=== PATIENT | male | born 1965 | race Caucasian/White ===

== ENCOUNTER 2018-07-22 15:50 | Outpatient (RCR) | payer BC ==
[2018-05-27] MEDS: VEDOLIZUMAB 300 MG/NS 250 ML IVPB IV SCH ×2 (17:03)
[2018-05-27 17:13] VITALS: BP 136/87
[~2018-07-22] VITALS: Ht 172.7 cm; Wt 95.3 kg
[~2018-07-22 15:50] MED LIST: PRED2.5T PO
[2018-07-22] MEDS: VEDOLIZUMAB 300 MG/NS 250 ML IVPB IV SCH ×2 (16:30)
[2018-07-22 17:05] VITALS: BP 145/87
== END 2018-08-25 | disposition home or self-care (01) ==
LOC: SDC 15:50
PROVIDERS: ATTEND Pediatrics
DX: K51.319 Ulcerative (chronic) rectosigmoiditis with unspecified complications (principal)
CPT/HCPCS: 96365; J3380

== ENCOUNTER 2018-11-11 16:17 | Outpatient (RCR) | payer BC ==
[2018-09-16] MEDS: VEDOLIZUMAB 300 MG/NS 250 ML IVPB IV SCH ×2 (16:45)
[2018-09-16 17:20] VITALS: BP 134/88
[~2018-11-11] VITALS: Ht 172.7 cm; Wt 95.3 kg
[2018-11-11] MEDS: VEDOLIZUMAB 300 MG/NS 250 ML IVPB IV SCH ×2 (16:45)
[2018-11-11 17:35] VITALS: BP 133/82
== END 2019-02-09 | disposition home or self-care (01) ==
LOC: SDC 16:17
PROVIDERS: ATTEND Pediatrics
DX: K51.319 Ulcerative (chronic) rectosigmoiditis with unspecified complications (principal)
CPT/HCPCS: 96365; J3380

== ENCOUNTER 2019-01-06 16:01 | Outpatient (RCR) | payer BC ==
[~2019-01-06] VITALS: Ht 172.7 cm; Wt 95.3 kg
[2019-01-06 16:15] VITALS: BP 139/88
[2019-01-06] MEDS ORDERED: VEDOLIZUMAB 300 MG/NS 250 ML IVPB IV SCH ×2 (16:15)
== END 2019-04-06 | disposition home or self-care (01) ==
LOC: SDC 16:01
PROVIDERS: ATTEND Pediatrics
DX: K51.319 Ulcerative (chronic) rectosigmoiditis with unspecified complications (principal)
CPT/HCPCS: 96365; J3380

== ENCOUNTER 2019-03-03 12:48 | Outpatient (RCR) | payer BC ==
[~2019-03-03] VITALS: Ht 172.7 cm; Wt 95.3 kg
[2019-03-03] MEDS ORDERED: VEDOLIZUMAB 300 MG/NS 250 ML IVPB IV SCH ×2 (13:15)
[2019-03-03 14:00] VITALS: BP 129/82
== END 2019-03-03 14:00 | disposition home or self-care (01) ==
LOC: SDC 12:48
PROVIDERS: ATTEND Pediatrics
DX: K51.319 Ulcerative (chronic) rectosigmoiditis with unspecified complications (principal)
CPT/HCPCS: 96365; J3380

== ENCOUNTER 2019-04-28 15:40 | Outpatient (RCR) | payer BC ==
[~2019-04-28] VITALS: Wt 95.3 kg
[2019-04-28] MEDS ORDERED: VEDOLIZUMAB 300 MG/NS 250 ML IVPB IV SCH ×2 (15:51)
[2019-04-28 16:46] VITALS: BP 127/84
== END 2019-04-28 16:46 | disposition home or self-care (01) ==
LOC: SDC 15:40
PROVIDERS: ATTEND Pediatrics
DX: K51.319 Ulcerative (chronic) rectosigmoiditis with unspecified complications (principal); R73.01 Impaired fasting glucose
CPT/HCPCS: J3380

== ENCOUNTER 2019-09-22 23:22 | Emergency (ER) | payer BC ==
[~2019-09-22] VITALS: Ht 172 cm; Wt 91.0 kg
[2019-09-22 23:30] VITALS: BP 142/91
--- OUTSIDE RECORDS SUMMARY | 2019-09-22 23:30 | XMS REPORT | Continuity of Care Document ---
Demographics Preferred Language Unknown Marital Status Unknown [employer] Affiliation Unknown Race Unknown Ethnic Group Unknown Author Organization Unknown Address Unknown Phone Unavailable Allergies Active Description Code Type Severity Reaction Onset Reported/Identified Relationship to Patient Clinical Status Yes No Known Drug Allergies [id number] Drug Allergy Unknown N/A 05/27/2018 Medications There is no data. Problems Date Dx Coded Attending Type Code Diagnosis Diagnosed By 02/13/1399 DAVID ROBLES, CHIRAG Guerra Ot K51.319 ULCERATIVE (CHRONIC) RECTOSIGMOIDITIS W 02/13/1645 CHIRAG HERNANDEZ MD, Ot K51.319 ULCERATIVE (CHRONIC) RECTOSIGMOIDITIS W 02/13/1645 CHIRAG HERNANDEZ MD, Ot R73.01 IMPAIRED FASTING GLUCOSE 05/28/2018 CHIRAG HERNANDEZ MD, Ot K51.319 ULCERATIVE (CHRONIC) RECTOSIGMOIDITIS W 07/08/2018 CHIRAG HERNANDEZ MD, Ot K51.319 ULCERATIVE (CHRONIC) RECTOSIGMOIDITIS W 07/22/2018 CHIRAG HERNANDEZ MD, Ot K51.319 ULCERATIVE (CHRONIC) RECTOSIGMOIDITIS W 07/22/2018 CHIRAG HERNANDEZ MD Ot K51.319 ULCERATIVE (CHRONIC) RECTOSIGMOIDITIS W 07/22/2018 CHIRAG HERNANDEZ MD, Ot K51.319 ULCERATIVE (CHRONIC) RECTOSIGMOIDITIS W 07/24/2018 CHIRAG HERNANDEZ MD Ot K51.319 ULCERATIVE (CHRONIC) RECTOSIGMOIDITIS W 08/25/2018 CHIRAG HERNANDEZ MD Ot K51.319 ULCERATIVE (CHRONIC) RECTOSIGMOIDITIS W 08/31/2018 CHIRAG HERNANDEZ MD Ot K51.319 ULCERATIVE (CHRONIC) RECTOSIGMOIDITIS W 09/25/2018 CHIRAG HERNANDEZ MD Ot K51.319 ULCERATIVE (CHRONIC) RECTOSIGMOIDITIS W 11/04/2018 CHIRAG HERNANDEZ MD, Ot K51.319 ULCERATIVE (CHRONIC) RECTOSIGMOIDITIS W 11/11/2018 CHIRAG HERNANDEZ MD, Ot K51.319 ULCERATIVE (CHRONIC) RECTOSIGMOIDITIS W 11/11/2018 CHIRAG HERNANDEZ MD Ot K51.319 ULCERATIVE (CHRONIC) RECTOSIGMOIDITIS W 11/11/2018 CHIRAG HERNANDEZ MD, Ot K51.319 ULCERATIVE (CHRONIC) RECTOSIGMOIDITIS W 11/11/2018 DAVID ROBLES, CHIRAG Guerra Ot K51.319 ULCERATIVE (CHRONIC) RECTOSIGMOIDITIS W 11/11/2018 DAVID ROBLES, CHIRAG Guerra Ot K51.319 ULCERATIVE (CHRONIC) RECTOSIGMOIDITIS W 11/11/2018 DAVID ROBLES, CHIRAG Guerra Ot K51.319 ULCERATIVE (CHRONIC) RECTOSIGMOIDITIS W 11/24/2018 DAVID ROBLES, CHIRAG Guerra Ot K51.319 ULCERATIVE (CHRONIC) RECTOSIGMOIDITIS W 11/24/2018 DAVID ROBLES, HCIRAG Guerra Ot K51.319 ULCERATIVE (CHRONIC) RECTOSIGMOIDITIS W 12/02/2018 DAVID ROBLES, CHIRAG Guerra Ot K51.319 ULCERATIVE (CHRONIC) RECTOSIGMOIDITIS W 01/14/2019 DAVID ROBLES, CHIRAG Guerra Ot K51.319 ULCERATIVE (CHRONIC) RECTOSIGMOIDITIS W 02/09/2019 DAVID ROBLES, CHIRAG Guerra Ot K51.319 ULCERATIVE (CHRONIC) RECTOSIGMOIDITIS W 02/09/2019 DAVID ROBLES, CHIRAG Guerra Ot K51.319 ULCERATIVE (CHRONIC) RECTOSIGMOIDITIS W 02/09/2019 DAVID ROBLES, CHIRAG Guerra Ot K51.319 ULCERATIVE (CHRONIC) RECTOSIGMOIDITIS W 02/10/2019 DAVID ROBLES, CHIRAG Guerra Ot K51.319 ULCERATIVE (CHRONIC) RECTOSIGMOIDITIS W 02/17/2019 DAVID ROBLES, CHIRAG Guerra Ot K51.319 ULCERATIVE (CHRONIC) RECTOSIGMOIDITIS W 03/03/2019 DAVID ROBLES, CHIRAG Guerra Ot K51.319 ULCERATIVE (CHRONIC) RECTOSIGMOIDITIS W 03/03/2019 DAVID ROBLES, CHIRAG Guerra Ot K51.319 ULCERATIVE (CHRONIC) RECTOSIGMOIDITIS W 03/03/2019 DAVID ROBLES, CHIRAG Guerra Ot K51.319 ULCERATIVE (CHRONIC) RECTOSIGMOIDITIS W 04/06/2019 DAVID ROBLES, CHIRAG Guerra Ot K51.319 ULCERATIVE (CHRONIC) RECTOSIGMOIDITIS W 04/28/2019 DAVID ROBLES, CHIRAG Guerra Ot K51.319 ULCERATIVE (CHRONIC) RECTOSIGMOIDITIS W 04/28/2019 DAVID ROBLES, CHIRAG Guerra Ot R73.01 IMPAIRED FASTING GLUCOSE 04/28/2019 DAVID ROBLES, CHIRAG Guerra Ot K51.319 ULCERATIVE (CHRONIC) RECTOSIGMOIDITIS W Procedures There is no data. Results Test Result Range CBC with Auto Diff - 06/18/16 09:49 Baso% 0.30 % 0.00-2.50 Eos 0.2 K/uL 0.0-0.7 Eos% 2.9 % 0.0-7.0 Hct 48.0 % 42.0-52.0 Hgb 16.4 g/dL 14.0-17.0 Lym 1.87 K/uL 0.60-3.40 Lym% 26.2 % 10.0-50.0 MCH 31.4 pg 27.0-31.2 MCHC 34.2 g/dL 32.0-36.0 MCV 91.8 fL 80.0-97.0 [place]% 13.7 % 0.0-12.0 MPV 9.8 fL 7.4-10.0 Linda% 56.9 % 37.0-80.0 Plt 216 K/uL 150-400 RBC 5.23 M/uL 4.20-5.40 RDW 12.4 % 11.6-14.8 WBC 7.14 K/uL 5.00-10.00 Linda 4.06 K/uL 2.00-6.90 [place] 1.0 K/uL 0.0-0.9 Baso 0.0 K/uL 0.0-0.2 Encounters ACCT No. Visit Date/Time Discharge Status Pt. Type Provider Facility Loc./Unit Complaint [id number] 09/02/2015 09:48:00 Document Registration [id number] 04/28/2019 15:40:00 020 16:46:00 DIS Outpatient CHIRAG HERNANDEZ MD [facility] ULCERATIVE RECTOSIGMOID ITIS [id number] 01/06/2019 16:01:00 020 00:01:00 DIS Outpatient CHIRAG HERNANDEZ MD [facility] ULCERATIVE RECTOSIGMOID ITIS [id number] 03/03/2019 12:48:00 14:00:00 DIS Outpatient CHIRAG HERNANDEZ MD [facility] ULCERATIVE RECTOSIGMOID ITIS [id number] 11/11/2018 16:17:00 00:01:00 DIS Outpatient CHIRAG HERNANDEZ MD [facility] ULCERATIVE RECTOSIGMOID ITIS [id number] 08/26/2018 00:13:00 23:59:59 CLS Preadmit DAVID ROBLES, CHIRAG Gonzales [facility] ULCERATIVE RECTOSIGMOIDITIS [id number] 07/22/2018 15:50:00 00:01:00 DIS Outpatient DAVID ROBLES, CHIRAG chauhan [facility] ULCERATIVE RECTOSIGMOID ITIS [id number] 09/22/2019 23:24:[address] Emergency KANE ROBLES, JARED Gonzales [facility] ER DENTAL PAIN
--- NOTE | 2019-09-22 23:52 | ED EENT ---
History of Present Illness General Chief Complaint: Dental Problems/Pain Stated Complaint: DENTAL PAIN Nursing Triage Note: Pt ambulates to FT1 with c/o right upper tooth pain. Pt has RX for azithromycin and hydrocodone that he took the first dose of at 5. Source: patient Exam Limitations: no limitations History of Present Illness Date Seen by Provider: Sep 22, 2019 Time Seen by Provider: 23:40 Initial Comments Patient presents to ER by private conveyance with chief complaint that for the past couple days had some progressively worsening right upper maxillary tooth pain in the middle molar. He went to see his dentist and she put him on azithromycin hydrocodone 7.5 x 3 25. He's had to take 2 of them here in the last 6 hours. He said the first one helped very well but the second one did not take the pain down to a tolerable amount and he could not sleep. He is not using any topical lidocaine or Orajel. He's not having any fevers or difficulty swallowing or breathing. Allergies and Home Medications Allergies Coded Allergies: No Known Drug Allergies (Unverified , 05/27/18) Home Medications Prednisone 2.5 Mg Tablet, 2.5 MG PO Q48H, (Reported) PT STATES WILL START PREDNISONE 2.5 MG TAB 05/28/18 AND TAKE ONE TAB TAB EVERY OTHER DAY FOR 30 DAYS, THEN DISCONTINUE THIS MED Patient Home Medication List Home Medication List Reviewed: Yes Review of Systems Review of Systems Constitutional: No chills, No diaphoresis Eyes: Denies Blindness, Denies Blurred Vision Ears: Denies Dizziness, Denies Pain Nose: denies clots, denies congestion Mouth: see HPI; denies clots; pain; denies swelling, denies bloody discharge, denies clear discharge, denies purulent discharge Throat: denies pain, denies swelling, denies discharge Respiratory: No cough, No short of breath All Other Systems Reviewed Negative Unless Noted: Yes Past Vtrwqkm-Asjpzo-Oeukgr Hx Patient Social History Alcohol Use: Denies Use Recreational Drug Use: No Smoking Status: Never a Smoker 2nd Hand Smoke Exposure: No Recent Foreign Travel: No Contact w/Someone Who Travel: No Recent Infectious Disease Expo: No Recent Hopitalizations: No Physical Abuse: No Sexual Abuse: No Mistreated: No Fear: No Seasonal Allergies Seasonal Allergies: No Past Medical History Surgeries: No Respiratory: No Cardiac: No Neurological: No Genitourinary: No Gastrointestinal: No Musculoskeletal: No Endocrine: No HEENT: No Cancer: No Psychosocial: No Integumentary: No Blood Disorders: No Physical Exam Vital Signs Vital Signs - First Documented 09/22/19 23:30 Temp 36.9 Pulse 64 Resp 16 B/P (MAP) 142/91 (108) Pulse Ox 97 O2 Delivery Room Air Height, Weight, BMI Height: 5'8.00" Weight: 210lbs. 0.0oz. 95.927293rm; 30.00 BMI Method: General Appearance: WD/WN, mild distress Eyes: bilateral eye normal inspection, bilateral eye PERRL, bilateral eye EOMI Ears: bilateral ear auricle normal, bilateral ear canal normal Nose: normal inspection; No active bleeding, No discharge Mouth/Throat: other (dental caries but no pointing or fluctuance.) Neck: non-tender, normal inspection Cardiovascular: normal peripheral pulses, regular rate, rhythm Respiratory: no respiratory distress, no accessory muscle use Neurologic/Psychiatric: alert, normal mood/affect, oriented x 3 Skin: normal color, warm/dry Progress/Results/Core Measures Results/Orders My Orders Orders - JARED MIDDLETON Lidocaine 2% Viscous 15 Ml (Xylocaine Vi (09/23/19 00:00) Vital Signs/I&O 09/22/19 23:30 Temp 36.9 Pulse 64 Resp 16 B/P (MAP) 142/91 (108) Pulse Ox 97 O2 Delivery Room Air Blood Pressure Mean: 108 Progress Progress Note : Time: 23:49 Progress Note Add warm moist heat and topical lidocaine. Departure Impression Primary Impression: Dental abscess Disposition: 01 HOME, SELF-CARE Condition: Stable Departure-Patient Inst. Decision time for Depature: 23:50 Referrals: CHIRAG HERNANDEZ MD (PCP/Family) Primary Care Physician Patient Instructions: Dental Pain (DC) Add. Discharge Instructions: Warm moist compresses applied your face can be helpful for the pain. Ibuprofen 600 mg every 8 hours as necessary for pain. Tylenol 650 mg every 8 hours as necessary for pain. Use the hydrocodone as prescribed. Orajel or other similar topical pain medication as directed After the viscous lidocaine runs out. 5 mL of viscous lidocaine applied to some gauze and pressed against tooth every 4 hours as necessary for pain control. All discharge instructions reviewed with patient and/or family. Voiced understanding. Scripts [viscous lidocaine 2%] 2 % BOTTLE No Conflict Check 5 ML TOP Q4H PRN for PAIN-BREAKTHROUGH, #100 ML 0 Refills Prov: JARED MIDDLETON 09/22/19 JARED MIDDLETON Sep 22, 2019 23:52
[2019-09-22] MEDS ORDERED: viscous lidocaine 2% TOP (23:55)
[2019-09-23] MEDS ORDERED: LIDOCAINE 2% VISCOUS 15 ML UDC PO ONE
== END 2019-09-23 00:02 | disposition home or self-care (01) ==
LOC: EDUNIT# 23:22 → ER 23:24
DX: K04.7 Periapical abscess without sinus (principal); Z79.52 Long term (current) use of systemic steroids
CPT/HCPCS: 99283